=== PATIENT | male | born 1955 | race Caucasian/White ===

== ENCOUNTER 2016-08-29 10:18 | Day surgery (SDC) | payer OTHER, MEDICARE ==
[2016-08-26 09:42] VITALS: BMI 27.4
[2016-08-29] MEDS ORDERED: MIDAZOLAM HCL 2 MG/2 ML SINGLE DOSE VIAL ONE (12:16)
[2016-08-29] MEDS ORDERED: TRIAMCINOLONE ACET 40MG/1ML VIAL ONE (12:22)
[2016-08-29] MEDS ORDERED: LIDOCAINE HCL 1%, 10 MG/ML (20ML VIAL) ONE (12:22)
[2016-08-29] MEDS ORDERED: SODIUM CHLORIDE 0.9% P/F 10 ML VIAL IJ ONE (12:22)
[2016-08-29] MEDS ORDERED: SODIUM BICARBONATE 8.4% 50 MEQ/50 ML VIAL ONE (12:23)
[2016-08-29] MEDS ORDERED: TRIAMCINOLONE ACET 40MG/1ML VIAL IM ONE (13:00)
[2016-08-29] MEDS ORDERED: LIDOCAINE HCL 1%, 10 MG/ML (20ML VIAL) IJ ONE (13:00)
[2016-08-29 13:56] VITALS: TEMP 98.1
[2016-08-29 14:13] VITALS: BP 124/76; PULSE 72
--- NOTE | 2016-10-26 08:23 | OP ---
DATE OF OPERATION: 08/29/2016 PROCEDURE PERFORMED: Lumbar Epidural Steroid Injection. DIAGNOSIS/INDICATION: Lower extremity radiculopathy. CONSENT: The procedure was explained and all questions answered. Risks discussed include bleeding, allergy, infection, and inadvertent puncture of the dura. Informed, written consent was obtained. [employer]: Deann Cochran MD TECHNIQUE: The patient was prepped and draped in the usual sterile fashion. Using fluoroscopic guidance, the L4-L5 interspinous space was localized, and the overlying skin and subcutaneous soft tissues were locally anesthetized with 1% Lidocaine. A 20-gauge epidural needle was advanced into the epidural space using [id number] technique. Epidurogram was performed using 5 mL Omnipaque contrast injected into the epidural space to verify needle tip position and to visualize epidural space and nerve root in AP and lateral views. Contrast spread was seen. A lateral spot radiograph was obtained. Depo-Medrol of 40 mg and 2 mL normal saline were injected into the epidural space and the needle was removed. The procedure was well tolerated. There were no immediate complications. Nonionic contrast was used because of the possibility of intrathecal administration. POSTOPERATIVE DIAGNOSIS: Lumbar epidural steroid injection for lumbar radiculopathy. DEANN COCHRAN M.D. [id number]
== END 2016-08-29 14:15 | disposition home or self-care (01) ==
LOC: FASU 10:18 → MERGE 12:00 → FASU 14:15
PROVIDERS: ATTEND Pain Medicine Interventional Pain Medicine
PROC: 3E0R3CZ (ICD-10-PCS; 2016-08-29)
PROC: 3E0R33Z Introduction of Anti-inflammatory into Spinal Canal, Percutaneous Approach (ICD-10-PCS; principal; 2016-08-29 12:45)
DX: M51.26 Other intervertebral disc displacement, lumbar region (principal); M54.16 Radiculopathy, lumbar region
CPT/HCPCS: 72100-TC